=== PATIENT | female | born 1995 | race African-American/Black ===

== ENCOUNTER 2023-01-18 12:29 | Emergency (ER) | payer OTHER ==
[2023-01-18 12:49] VITALS: BP 110/64; PULSE 78; RESP 17; TEMP 97.6; BMI 28.4
== END 2023-01-18 13:48 | disposition home or self-care (01) ==
LOC: JERFT 12:29
DX: M25.571 Pain in right ankle and joints of right foot (principal); S93.601A Unspecified sprain of right foot, initial encounter; W01.0XXA Fall on same level from slipping, tripping and stumbling without subsequent striking against object, initial encounter; X50.1XXA Overexertion from prolonged static or awkward postures, initial encounter; Y99.0 Civilian activity done for income or pay
CPT/HCPCS: 73610-TC-RT-FY; 73630-TC-RT-FY; 99283-25

== ENCOUNTER 2023-03-08 14:37 | Emergency (ER) | payer OTHER ==
[2023-03-08 15:04] VITALS: BP 118/75; PULSE 71; RESP 18; TEMP 98; BMI 27.3
[2023-03-08 16:16] LABS: BASO % 1.4 % (0-2.0); HEMATOCRIT 39.3 % (32.4-45.2); HEMOGLOBIN 12.9 GM/dL (10.7-15.3); LYMPH % 33.7 % (8-40); MCH 29.6 pg (25.7-33.7); MCHC 32.9 g/dl (32.0-36.0); MONO % 9.3 % (3.8-10.2); NEUT % 43.6 % (42.8-82.8); PLATELET COUNT 292 10^3/uL (134-434); RBC 4.37 M/mm3 (3.60-5.2); WHITE BLOOD COUNT 6.1 K/mm3 (4.0-10.0)
[2023-03-08 16:25] LABS: POTASSIUM 3.9 mmol/L (3.5-5.1)
[2023-03-08 16:26] LABS: CALCIUM 8.5 mg/dL (8.5-10.1)
[2023-03-08 16:27] LABS: ALBUMIN 3.9 g/dl (3.4-5.0)
[2023-03-08 16:28] LABS: BLOOD UREA NITROGEN 11.1 mg/dL (7-18)
[2023-03-08 16:31] LABS: CREATININE 0.8 mg/dL (0.55-1.3); PHOSPHOROUS 4.1 mg/dL (2.5-4.9); URIC ACID 4.2 mg/dL (2.6-7.2)
[2023-03-08 16:33] LABS: BILIRUBIN,TOTAL 0.3 mg/dL (0.2-1); TOT PROT 7.1 g/dl (6.4-8.2)
[2023-03-08 17:21] LABS: HIV INTERPRETATION NEGATIVE (NEGATIVE)
== END 2023-03-08 16:00 | disposition home or self-care (01) ==
LOC: JERFT 14:37 → JER 14:37 → JERFT 16:00
DX: H57.12 Ocular pain, left eye (principal); Z77.21 Contact with and (suspected) exposure to potentially hazardous body fluids
CPT/HCPCS: 36415; 80053; 82465; 82977; 83615; 84100; 84478; 84550; 85025; 86704; 86803; 87340; 87389; 87517; 99283-25

== ENCOUNTER 2023-09-11 12:12 | Emergency (ER) | payer OTHER ==
[2023-09-11 12:25] VITALS: BP 122/78; PULSE 73; RESP 20; TEMP 97.8; BMI 26.3
[2023-09-11] MEDS ORDERED: KETOROLAC TROMETHAMINE 30 MG/1 ML VIAL ONE (14:01)
[2023-09-11] MEDS: KETOROLAC TROMETHAMINE 30 MG/1 ML VIAL IM ONE (14:06)
== END 2023-09-11 14:32 | disposition home or self-care (01) ==
LOC: JERFT 12:12
DX: R10.2 Pelvic and perineal pain (principal)
CPT/HCPCS: 99283-25